=== PATIENT | female | born 1995 | race Caucasian/White ===

== ENCOUNTER 2018-12-25 05:39 | Inpatient (IN) | payer BC ==
[2018-12-24 14:03] LABS: RPR Titer ND
[2018-12-24 14:09] LABS: Urine Appearance CLEAR; Urine Bilirubin NEGATIVE (NEG); Urine Blood NEGATIVE (NEG); Urine Color YELLOW; Urine Glucose NEGATIVE (NEG); Urine Protein NEGATIVE (NEG); Urine Specific Gravity <=1.005 (1.005-1.030); Urine Urobilinogen 0.2 mg/dL (0.2-1.0); Urine pH 6.5 (5.0-7.0)
[2018-12-24 14:37] LABS: Urine Bacteria <20 /HPF (<20); Urine Culture Reflex Order REFLEXED; Urine RBC NONE SEEN /HPF (NONE SEEN)
[2018-12-24 14:42] LABS: Absolute Monocytes 0.7 K/uL (0.1-1.3); Absolute Neutrophil 6.8 K/uL (1.8-8.0); Basophils % 0.2 % (0-1.3); Eosinophils % 0.5 % (0-4.4); Hematocrit 44.5 % (36.0-45.0); Lymphocytes % 20.7 % (15.3-44.8); MPV 11.1 fL (7.6-11.3); Monocytes % 7.5 % (3.3-12.3); RBC Red Blood Cell Count 4.63 M/uL (3.86-4.86)
[2018-12-24 21:05] LABS: Blood Morphology Comment NOT SEEN (NOT SEEN); Platelet Estimate ADEQ; Urine White Blood Cell Casts OK
[2018-12-24 21:06] LABS: Platelets, Giant PRESENT
[2018-12-24 21:24] LABS: RPR (Rapid Plasma Reagin) NON-REACT (NON-REACT)
[~2018-12-25 05:39] MED LIST: CEFAZOLIN/SWI 2gm 2 GM/20 ML SYR IV SCH; FAMOTIDINE 20 MG/2 ML VIAL IV ONE; METOCLOPRAMIDE 10 MG/2mL INJ IV ONE; NA CIT/CITRIC AC 30 ML ORAL UDC PO ONE; Ringers Lactate 1,000 ML IV PRN; Ringers Lactate 1,000 ML IV SCH
[2018-12-25 06:05] VITALS: BMI 24.5
[2018-12-25] MEDS ORDERED: METHYLERGONOVINE 0.2MG/ML AMP IM ONE (07:11)
[2018-12-25] MEDS ORDERED: CARBOPROST TROME 250 MCG/ML IM ONE (07:11)
[2018-12-25] MEDS ORDERED: MORPHINE SULFATE/PF 1 MG/ML (10 ML AMP) ONE (07:18)
[2018-12-25] MEDS ORDERED: OXYTOCIN 10 UNIT/ML ML IV ONE ×2 (07:18→08:42)
[2018-12-25] MEDS ORDERED: NS 0.9% VIAL 10 ML ONE (07:18)
[2018-12-25] MEDS ORDERED: EPHEDRINE SULF 50 MG/ML VIAL ONE (07:18)
[2018-12-25] MEDS ORDERED: Phenylephrine HCl 10 MG/ML 1 ML VIAL ONE (07:36)
[2018-12-25] MEDS ORDERED: Oxycodone HCl/Acetaminophen 1 TAB TAB PO PRN (08:40)
[2018-12-25] MEDS ORDERED: METHYLERGONOVINE 0.2MG/ML AMP IM PRN (08:40)
[2018-12-25] MEDS ORDERED: ONDANSETRON 4 MG (ODT) TAB PO PRN (08:40)
[2018-12-25] MEDS ORDERED: CARBOPROST TROME 250 MCG/ML IM PRN (08:40)
--- NOTE | 2018-12-25 08:44 | P.BOP ---
Preoperative diagnosis: 39 week IUP, prior , pigmented lesion of abdomen Postoperative diagnosis: same, delivery viable female infant Primary procedure: Secondary procedure: excision pigmented lesion Diamond Wheel Edger: Chavo Will Estimated blood loss: 800ml Specimen: placenta, pigmented lesion Anesthesia: Spinal Complications: None Drain(s): Urinary catheter Transferred to: Other (278) Condition: Good
[2018-12-25] MEDS ORDERED: OXYTOCIN/LR 20 UNIT/1,000 ML BAG IV SCH (09:00)
[2018-12-25] MEDS: KETOROLAC 30 MG/ML INJ IV PRN (10:03)
[2018-12-25] MEDS ORDERED: Ringers Lactate 1,000 ML IV ONE ×2 (10:25→11:15)
[2018-12-25] MEDS: METHYLERGONOVINE 0.2 MG TAB PO PRN ×2 (13:55→17:55)
[2018-12-25] MEDS: Oxycodone HCl/Acetaminophen 1 TAB TAB PO PRN (22:38)
--- NOTE | 2018-12-26 03:40 | OP ---
Surgeon: Butch Watson MD Anesthesiologist: Taniya Hernandez CRNA and Dr. Trevor Rivera. Estimated total blood loss was less than 800 cc. The patient received 2 g of Ancef for antibiotic pr ophylaxis. Preoperative Diagnoses: A 39-week , prior section, cephalopelvic disproportion, an d pigmented abdominal lesion. Procedure: Spinal block anesthesia, repeat section, delivery of viable female infant, and e xcision of pigmented abdominal lesion. Postoperative Diagnoses: A 39-week , prior section, cephalopelvic disproportion, a nd pigmented abdominal lesion. Description Of Procedure: After satisfactory level of spinal block anesthesia was obtained, the haleigh ent was prepped and draped in the usual fashion for abdominal surgery. A Pfannenstiel skin incision was made and carried down to the fascia. The fascia was incised with a combination of sharp and blun t dissection. This was from the underlying rectus muscles. These were divided in the midl ine. The peritoneum was incised. Bladder flap was developed. A low-transverse uterine incision was made. A 7-pound and 6-ounce female infant, 9 and 10, was delivered, vertex presentation. Cor d was clamped, cut, and the was placed in a warmer. Cord blood was obtained. The placenta wa s manually removed and the uterus was then exteriorized. The cervix was dilated from above with ring clamp which was passed from the operative field. Uterus was closed in 2 layers utilizing 0 Vicryl s uture in a running nonlocking fashion. Second layer was used to imbricate the first. The vesicouter ine peritoneum was reapproximated with running suture of 3-0 Vicryl. The uterus was returned to the peritoneal cavity, which was closed by approximating the rectus muscles in the midline with simple knott tures of 0 Vicryl. The fascia was closed with running sutures of #1 Vicryl from either margin to the middle. Simple subcutaneous sutures were used as was a subdermal suture of 3-0 Vicryl, and a subcut icular suture of 4-0 Monocryl to close the abdominal incision. Attention was then paid to the pigmen trace lesion in the upper right of midline. An elliptical incision was made excising the pigmented les ion. This was closed with a subcuticular suture of 4-0 Monocryl. Estimated total blood loss was les s than 800 cc. The patient was taken to recovery room in satisfactory condition with sponge and need le counts correct x2. Accountant Systems Surgeon: Shady Chen/ESCOBAR Voice ID: [id number] Report ID: [id number]
[2018-12-26] MEDS: Oxycodone HCl/Acetaminophen 1 TAB TAB PO PRN ×3 (03:43→21:27)
[2018-12-26 06:53] LABS: Absolute Lymphocytes (CBC) 1.8 K/uL (0.7-4.9); Absolute Monocytes 0.7 K/uL (0.1-1.3); Absolute Neutrophil 7.6 K/uL (1.8-8.0); Basophils % 0.5 % (0-1.3); Eosinophils % 0.7 % (0-4.4); Hematocrit 36.1 % (36.0-45.0); MPV 10.6 fL (7.6-11.3); Monocytes % 6.8 % (3.3-12.3); RBC Red Blood Cell Count 3.79 M/uL (3.86-4.86)
[2018-12-26] MEDS: KETOROLAC 30 MG/ML INJ IV PRN (07:00)
--- NOTE | 2018-12-26 07:49 | P.PN ---
Date of Service: 12/26/18 S-No complaints O-Afebrile, vs stable, bandage dry, h/h stable A-Satisfactory po op course P-Ambulate, dc IV, tran, advance diet. Probably home tomorrow.
[2018-12-26] MEDS: IBUPROFEN 400 MG TAB PO PRN (15:21)
[2018-12-27] MEDS: IBUPROFEN 400 MG TAB PO PRN (01:16)
[2018-12-27] MEDS: Oxycodone HCl/Acetaminophen 1 TAB TAB PO PRN ×2 (05:19→09:35)
[2018-12-27 05:29] VITALS: TEMP 97.8
[2018-12-27 07:17] VITALS: BP 110/60
--- NOTE | 2018-12-27 20:26 | DS ---
Date of Discharge: 12/27/2018 Final Hospital Discharge Diagnosis: Term , prior section, cephalopelvic disproport ion. Complications: None. Procedures: Spinal block anesthesia. Repeat section. Delivery of viable female . Hospital Course: The patient is a 23-year-old female, 2, para 1-0-0-1, at 39 weeks gestation, admitted for a repeat section. She delivered a 7-pound 6-ounce female i nfant, 9 and 9. She was dismissed on the second postoperative day, ambulatory on a select diet with routine post activity restrictions. Lab work included an admission hemoglobin and he matocrit of 15.1 and 44.5, dismissal 12.5 and 36.1. She had negative urinalysis, nonreactive RPR. S he is O positive blood type. She was dismissed with prescription for Tylenol No.3 for pain relief, # 15 tablets, to continue taking her vitamins, to be seen back in my office in 1 week with rhonda foley post section activity restrictions. EULOGIO/ESCOBAR Voice ID: [id number] Report ID: [id number]
== END 2018-12-27 09:45 | disposition home or self-care (01) | DRG 788 ==
LOC: 2ND-WC 05:39
PROVIDERS: ADMIT Specialist; ATTEND Specialist
PROC: 0HB7XZZ Excision of Abdomen Skin, External Approach (ICD-10-PCS; 2018-12-25)
PROC: 10D00Z1 Extraction of Products of Conception, Low, Open Approach (ICD-10-PCS; principal; 2018-12-25 07:30)
DX: O33.9 Maternal care for disproportion, unspecified (principal); Z3A.39 39 weeks gestation of pregnancy; Z37.0 Single live birth; O26.893 Other specified pregnancy related conditions, third trimester; L81.9 Disorder of pigmentation, unspecified; D22.5 Melanocytic nevi of trunk
CPT/HCPCS: 36415; 81001; 85025; 86592; 86850; 86900; 86901; 87086; 87088; 88305; 88307; J2210; J2370; J2590; J2765

== ENCOUNTER 2025-05-20 21:10 | Emergency (ER) | payer SELFPAY, OTHER ==
--- OUTSIDE RECORDS SUMMARY | 2025-05-20 21:14 | XMS REPORT | Continuity of Care Document ---
Author Name Unknown Address [address] [facility] [address] [place] [address] [facility] Address [address] [facility] [address] [place] [address] Care Team Providers Care Supervisor Floor Assembly Name Role Phone Pcp, Patient Does Not Have A Primary Care Physic laurie NENITA SALCIDO Attending Clinician Unavailable Doctor Unassigned, [place] Attending Clinician U Nenita Núñez MD Attending Clinician [phone] Zora Campos MD Attending Clinician [phone] Patsy Avila MD Attending Clinician [phone] UNKNOWN, ATTENDING Attending Clinician Unavailab NENITA Simon Admitting Clinician Unavailable Zora Campos MD Admitting Clinician [phone] Nenita Salcido MD Admitting Clinician [phone] Payers Payer Name Policy Type Policy Number Effective Date Expirati on Date Source [employer] MEDICAID [id number] 2021 00:00:00 [facility] [id number] 2015 00:00:00 [place] [id number] 2020 00:00:00 Problems Condition Name Condition Details Condition Category Status Onset Date Resolution Date Last Treatment Date Treating Clinician Comments Source History of herpes genitalis History of herpes genitalis Disease Active 00:00: 00 [facility] COVID-19 virus infection COVID-19 virus infection Disease Active 8- 00:00: 00 [facility] Anxiety Anxiety Disease Active [facility] Depression Depression Disease Active U [facility] Allergies, Adverse Reactions, Alerts Allergy Name Allergy Type Status Severity Reaction(s) Onset Date Inactive Date Treating Clinician Comments Source No Known Allergie s DA Active U 05-16 00:00: 00 [facility] No Known Allergie s DA Active U 05-16 00:00: 00 [facility] NO KNOWN ALLERGIE S Drug Class Active [facility] Social History Social Habit Start Date Stop Date Quantity Comments Source History of tobacco use Cigarette Smoker [facility] Sexual orientation [facility] ASSERTION [facility] Exposure to SARS-CoV-2 (event) 2021-06-24 00:00:00 2021-07-24 13:23:00 Not sure [facility] Alcohol intake 2021-04-23 00:00:00 2021-04-23 00:00:00 Current non-drinker of alcohol (finding) [facility] History of Social function 2019-04-19 00:00:00 2019-04-19 00:00:00 [facility] Tobacco use and exposure 2018-05-19 00:00:00 2018-05-19 00:00:00 Smokeless tobacco non-user [facility] Tobacco Comment 2018-05-19 00:00:00 2018-05-19 00:00:00 4-5 cig a day [facility] Sex Assigned At 1995 00:00:00 1995 00:00:00 [facility] Smoking Status Start Date Stop Date Source Ex-smoker 2018-05-19 00:00:00 2018-05-19 00:00:00 U [facility] Medications Ordered Medication Name Filled Medication Name Start Date Stop Date Current Medication? Ordering Clinician Indication Dosage Frequency Signature (SIG) Comments Components Source valACYclovi r 1 gram tablet 2-14 00:00: 00 Yes 1g Take 1 tablet by mouth 2 (two) times daily. [facility] etonogestre L (NEXPLANON) implant 68 mg 2020-10 21:00: 00 07-24 19:52 :00 No [id number] 68mg [facility] SERTraline (ZOLOFT) 50 mg tablet 06-16 13:01: 52 Yes 50mg Take 50 mg by mouth daily. [facility] ibuprofen 800 mg tablet 06-16 00:00: 00 Yes [id number] 800mg Take 1 tablet by mouth every 8 (eight) hours. [facility] gabapentin 300 mg capsule 06-16 00:00: 00 Yes [id number] 300mg Take 1 capsule by mouth 3 (three) times daily. [facility] docusate calcium 240 mg capsule 06-16 00:00: 00 Yes [id number] 240mg Take 1 capsule by mouth once daily as needed for Constipati on. [facility] ferrous sulfate 325 mg (65 mg iron) tablet 06-16 00:00: 00 Yes [id number] 325mg Take 1 tablet by mouth 2 (two) times daily. [facility] ferrous sulfate 325 mg (65 mg iron) EC tablet 01-27 00:00: 00 Yes 325mg Take 1 tablet by mouth 2 (two) times daily. [facility] PNV 119-iron fum-folic acid (SE--1 9) 29 mg iron- 1 mg Tab 01-27 00:00: 00 Yes 1{tbl} Take 1 tablet by mouth daily. [facility] PNV 119-iron fum-folic acid (SE--1 9) 29 mg iron- 1 mg Tab 01-27 00:00: 00 Yes 1{tbl} Take 1 tablet by mouth daily. [facility] Immunizations Ordered Immunization Name Filled Immunization Name Date Status Comments Source TDAP 2021-04-03 00:00:00 Completed [facility] TDAP 2021-04-03 00:00:00 Completed [facility] TDAP 2021-04-03 00:00:00 Completed [facility] MMR 2013-12-17 00:00:00 Completed [facility] MMR 2013-12-17 00:00:00 Completed [facility] MMR 2013-12-17 00:00:00 Completed [facility] TDAP 2013-09-13 00:00:00 Completed [facility] TDAP 2013-09-13 00:00:00 Completed [facility] TDAP 2013-09-13 00:00:00 Completed [facility] Influenza Virus Vaccine (3+ yrs) 2013-07-05 00:00:00 Completed [facility] Influenza Virus Vaccine (3+ yrs) 2013-07-05 00:00:00 Completed [facility] Influenza Virus Vaccine (3+ yrs) 2013-07-05 00:00:00 Completed [facility] Td 2008-10-10 00:00:00 Completed [facility] Td 2008-10-10 00:00:00 Completed [facility] Td 2008-10-10 00:00:00 Completed [facility] TD, NOS Unknown Completed [facility] Influenza Virus Vaccine (3+ yrs) Unknown Completed [facility] TDAP Unknown Completed [facility] MMR Unknown Completed [facility] TD, NOS Unknown Completed [facility] Influenza Virus Vaccine (3+ yrs) Unknown Completed [facility] TDAP Unknown Completed [facility] MMR Unknown Completed [facility] Vital Signs Vital Name Observation Time Observation Value Comments S ource Systolic blood pressure 2021-07-24 18:47:00 113 mm[Hg] [facility] Diastolic blood pressure 2021-07-24 18:47:00 75 mm[Hg] [facility] Heart rate 2021-07-24 18:47:00 102 /min [facility] Body temperature 2021-07-24 18:47:00 36.78 Shannan [facility] Respiratory rate 2021-07-24 18:47:00 18 /min [facility] Body height 2021-07-24 18:47:00 149.9 cm [facility] Body weight 2021-07-24 18:47:00 53.978 kg [facility] BMI 2021-07-24 18:47:00 24.04 kg/m2 [facility] Procedures Procedure Date / Time Performed Performing Clinicia n Source EXTERNAL PROVIDER RECORDS 2021-11-20 06:01:00 Doctor Unassigned, [place] [facility] POCT TEST 2021-07-24 00:00:00 Nenita Salcido [facility] Encounters Start Date/Time End Date/Time Encounter Type Admission Type Attending [facility] Care Facility Care Department Encounter ID Source 2021-08-10 20:32:[address] [facility] [id number] [facility] 2021-08-10 19:48:[address] [facility] ADRIANA [id number] [facility] 2021-08-10 19:32:[address] [facility] [id number] [facility] 2021-08-08 23:13:[address] [facility] [id number] [facility] 2021-11-20 00:00:00 2021-11-20 00:00:00 Orders Only Doctor Unassigned, [place] [facility] 1.840.114 350.1.13.10 4.2.7.2.686 [id number] [facility] 2021-11-20 00:00:00 2021-11-20 00:00:00 Telephone AdNenita harrington [facility] 1.840.114 350.1.13.10 4.2.7.2.686 [id number] [facility] 2021-11-20 00:00:00 2021-11-20 00:00:00 Patient Secure Msg Doctor Unassigned, [place] [facility] 1.840.114 350.1.13.10 4.2.7.2.686 [id number] [facility] 2021-07-24 13:24:07 2021-07-24 14:46:43 Office Visit AdNenita harrington [facility] [id number] 350.1.13.10 4.2.7.2.686 [id number] [facility] 2021-07-24 13:30:00 2021-07-24 13:30:00 Outpatient R ADUMNENITA [facility] [id number] [facility] 2021-07-17 10:59:55 2021-07-17 11:49:21 Routine Visit Adjuany, Nenita Mills [facility] [id number] 350.1.13.10 4.2.7.2.686 [id number] [facility] 2021-07-17 11:00:00 2021-07-17 11:00:00 Outpatient R ADJUANY, [facility] [id number] [facility] 2021-07-02 09:20:09 2021-07-02 10:00:42 Routine Visit Adjuany, Nenita Mills [facility] [id number] 350.1.13.10 4.2.7.2.686 [id number] [facility] 2021-07-02 09:00:00 2021-07-02 09:00:00 Outpatient R ADUM, [facility] [id number] [facility] 2021-06-25 09:00:00 2021-06-25 09:00:00 Outpatient R ADUM, [facility] [id number] [facility] 2021-06-19 13:00:00 2021-06-19 13:00:00 Outpatient R ADJUANY [facility] [id number] [facility] 2021-06-14 08:50:00 2021-06-16 13:00:00 Hospital Encounter Petra Camposen [facility] 1.2.840.114 350.1.13.10 4.2.7.2.686 [id number] [facility] 2021-06-14 09:24:08 2021-06-14 09:24:08 Anesthesia Event Patsy Avila [facility] 1.2.840.114 350.1.13.10 4.2.7.2.686 [id number] [facility] 2021-06-14 00:00:00 2021-06-14 00:00:00 Surgery Adum, [facility] [id number] 350.1.13.10 4.2.7.2.686 [id number] [facility] 2021-06-12 14:24:23 2021-06-12 15:27:36 Routine Visit Adum, [facility] 1.2.840.114 350.1.13.10 4.2.7.2.686 [id number] [facility] 2021-06-12 14:15:00 2021-06-12 14:15:00 Outpatient R ADJUANY [facility] [id number] [facility] 2021-06-10 05:21:00 2021-06-10 18:25:00 Emergency Adum, [facility] 1.2.840.114 350.1.13.10 4.2.7.2.686 [id number] [facility] 2021-06-04 16:16:36 2021-06-04 17:12:23 Routine Visit Adum, [facility] 1.2.840.114 350.1.13.10 4.2.7.2.686 [id number] [facility] 2021-06-04 16:00:00 2021-06-04 16:00:00 Outpatient R ADUM, [facility] [id number] [facility] 2021-05-25 00:00:00 2021-05-25 00:00:00 Patient Secure Msg Gouldjuany Nenita L[facility] 1.2.840.114 350.1.13.10 4.2.7.2.686 [id number] [facility] 2021-05-23 19:00:00 2021-05-23 19:00:00 Outpatient R UNKNOWN, ATTENDING [facility] [id number] [facility] 2021-05-19 14:15:00 2021-05-19 14:15:00 Outpatient R NENITA SALCIDO [facility] [id number] [facility] 2021-05-07 08:45:00 2021-05-07 08:45:00 Outpatient R NENITA SALCIDO [facility] [id number] [facility] 2021-05-05 08:45:00 2021-05-05 08:45:00 Outpatient R ADNENITA HARRINGTON [facility] [id number] [facility] 2021-05-04 14:45:00 2021-05-04 14:45:00 Outpatient R ADNENITA HARRINGTON [facility] [id number] [facility] 2021-04-22 08:45:00 2021-04-22 08:45:00 Outpatient R NENITA SALCIDO [facility] [id number] [facility] 2021-04-21 08:45:00 2021-04-21 08:45:00 Outpatient R ADNENITA HARRINGTON [facility] [id number] [facility] 2021-04-17 08:45:00 2021-04-17 08:45:00 Outpatient R ADNENITA HARRINGTON [facility] [id number] [facility] 2021-04-15 09:30:00 2021-04-15 09:30:00 Outpatient R ADNENITA HARRINGTON [facility] [id number] [facility] 2021-04-06 09:30:00 2021-04-06 09:30:00 Outpatient [facility] [id number] [facility] 2021-04-03 08:45:00 2021-04-03 08:45:00 Outpatient R NENITA SALCIDO [facility] [id number] [facility] 2021-03-13 10:30:00 2021-03-13 10:30:00 Outpatient R NENITA SALCIDO [facility] [id number] [facility] 2021-02-13 09:00:00 2021-02-13 09:00:00 Outpatient R NENITA SALCIDO [facility] [id number] [facility] 2021-02-10 08:00:00 2021-02-10 08:00:00 Outpatient P [facility] [id number] [facility] 2021-01-16 09:30:00 2021-01-16 09:30:00 Outpatient R NENITA SALCIDO [facility] [id number] [facility] 2020-05-16 13:17:00 2020-05-19 02:33:12 Inpatient [facility] [id number] [facility] Results Test Description Test Time Test Comments Results Result Co mments [id number]* Test Item Value Reference Range Interpretation Comme nts POCT PREG (test code = 1605) Negative On board controls acceptable with C Line (test code = 3574) Yes POCT PREG LOT # (test code = 3575) POCT PREG TEST DATE ( test code = 3576) [facility] [id number] 15:20:00* Test Item Value Reference Range Interpretation Comme nts HCG SERUM QUAL (test code = HCGQL) NEGATIVE CBC W/AUTO [id number] 15:08:00* Test Item Value Reference Range Interpretation Comme nts WHITE BLOOD CELL (test code = WBC) 5.6 K/mm3 6.6-12.1 L RED BLOOD CELL (test code = RBC) 4.42 M/mm3 3.45-5.01 N HEMOGLOBIN (test code = HGB) 11.1 g/dL 10.7-13.9 N HEMATOCRIT (test code = HCT) 37.5 % 32.1-42.1 N MEAN CELL VOLUME (test code = MCV) 85 fL 84.1-94.8 N MEAN CELL HGB (test code = MCH) 25.1 pg 27-35 L MEAN CELL HGB CONCETRATION ( test code = MCHC) 29.6 gm/dL 32.2-34.1 L RED CELL DISTRIBUTION WIDTH (test code = RDW) 14.6 % 12.4-16.5 N PLATELET COUNT (test code = PLT) 353 K/mm3 133-385 N MEAN PLATELET VOLUME (test c ode = MPV) 12.0 fl 9.1-12.7 N MANUAL DIFF REQUIRED (test c ode = MDIFF) YES RBC MORPHOLOGY REQUIRED (libia t code = RBCM) NORMAL NORMAL PLATELET MORPHOLOGY REQUIRED (test code = PLTMR) NORMAL NORMAL WBC [id number] 15:08:00* Test Item Value Reference Range Interpretation Comme nts TOTAL CELLS COUNTED (test co de = TCC) 100 #CELLS SEGMENTED NEUTROPHILS (test code = SEG) 66 % 56.5-79.4 N LYMPHOCYTE (test code = LYMPH) 25 % 20-40 N ATYPICAL LYMPH (test code = ALYMPH) 1 % MONOCYTE (test code = MON) 7 % 0-8 N EOSINOPHIL (test code = EOS) 1 % 0-4 N PLATELET ESTIMATE (test code = PLTEST) ADEQUATE ADEQ PLATELET MORPHOLOGY (test co de = PLTMORPH) NORMAL NORMAL CBC W/AUTO [id number] 14:47:00* Test Item Value Reference Range Interpretation Comme nts WHITE BLOOD CELL (test code = WBC) 5.6 K/mm3 6.6-12.1 L RED BLOOD CELL (test code = RBC) 4.42 M/mm3 3.45-5.01 N HEMOGLOBIN (test code = HGB) 11.1 g/dL 10.7-13.9 N HEMATOCRIT (test code = HCT) 37.5 % 32.1-42.1 N MEAN CELL VOLUME (test code = MCV) 85 fL 84.1-94.8 N MEAN CELL HGB (test code = MCH) 25.1 pg 27-35 L MEAN CELL HGB CONCETRATION ( test code = MCHC) 29.6 gm/dL 32.2-34.1 L RED CELL DISTRIBUTION WIDTH (test code = RDW) 14.6 % 12.4-16.5 N PLATELET COUNT (test code = PLT) 353 K/mm3 133-385 N MEAN PLATELET VOLUME (test c ode = MPV) 12.0 fl 9.1-12.7 N MANUAL DIFF REQUIRED (test c ode = MDIFF) YES RBC MORPHOLOGY REQUIRED (libia t code = RBCM) NORMAL PLATELET MORPHOLOGY REQUIRED (test code = PLTMR) NORMAL WBC [id number] 14:47:00* Test Item Value Reference Range Interpretation Comme nts SEGMENTED NEUTROPHILS (test code = SEG) % 56.5-79 .4 LYMPHOCYTE (test code = LYMPH) % 20-40 CBC W/AUTO [id number] 14:47:00* Test Item Value Reference Range Interpretation Comme nts WHITE BLOOD CELL (test code = WBC) 5.6 K/mm3 6.6-12.1 L RED BLOOD CELL (test code = RBC) 4.42 M/mm3 3.45-5.01 N HEMOGLOBIN (test code = HGB) 11.1 g/dL 10.7-13.9 N HEMATOCRIT (test code = HCT) 37.5 % 32.1-42.1 N MEAN CELL VOLUME (test code = MCV) 85 fL 84.1-94.8 N MEAN CELL HGB (test code = MCH) 25.1 pg 27-35 L MEAN CELL HGB CONCETRATION ( test code = MCHC) 29.6 gm/dL 32.2-34.1 L RED CELL DISTRIBUTION WIDTH (test code = RDW) 14.6 % 12.4-16.5 N PLATELET COUNT (test code = PLT) 353 K/mm3 133-385 N MEAN PLATELET VOLUME (test c ode = MPV) 12.0 fl 9.1-12.7 N MANUAL DIFF REQUIRED (test c ode = MDIFF) YES RBC MORPHOLOGY REQUIRED (libia t code = RBCM) NORMAL PLATELET MORPHOLOGY REQUIRED (test code = PLTMR) NORMAL WBC [id number] 14:47:00* Test Item Value Reference Range Interpretation Comme nts SEGMENTED NEUTROPHILS (test code = SEG) % 56.5-79 .4 LYMPHOCYTE (test code = LYMPH) % 20-40 UA RFLX MICR CULT IF [id number] 14:23:00* Test Item Value Reference Range Interpretation Comme nts UA COLOR (test code = COLU) YELLOW YELLOW UA APPEARANCE (test code = APPU) Slightly-Cloudy CLEAR UA GLUCOSE DIPSTICK (test code = DGLUU) NEGATIVE NEG UA BILIRUBIN DIPSTICK (test code = BILU) NEGATIVE NEG UA KETONE DIPSTICK (test cod e = KETU) NEGATIVE NEG UA SPECIFIC GRAVITY (test code = SGU) 1.019 1.001-1.035 N UA BLOOD DIPSTICK (test code = BRANDON) 3+ NEG A UA PH DIPSTICK (test code = DANIEL) 6.0 5-9 UA PROTEIN DIPSTICK (test code = PROU) 1+ NEG A UA UROBILINIOGEN DIPSTICK (test code = URO) NEGATIVE mg/dL NEG UA NITRITE DIPSTICK (test code = ALISSA) NEG NEG UA LEUKOCYTE ESTERASE DIPSTICK (test code = LEUU) NEG NEG UA WBC (test code = WBCU) 11-15 #/hpf NONE SEEN A UA RBC (test code = RBCU) 3-5 #/hpf NONE SEEN A UA EPITHELIAL CELLS (test code = EPIU) RARE #/HPF RARE-FEW UA BACTERIA (test code = BACU) RARE /HPF RARE-FEW UA MUCUS (test code = MUCU) 1+ NONE SEEN UA AMORPHOUS SEDIMENT (test code = AMORU) RARE Indication for culture: Suprapubic PainUR HCG [id number] 14:17:00* Test Item Value Reference Range Interpretation Comme nts UR HCG QUAL (test code = HCGQLU) NEGATIVE 1. Very dilute u rine specimens, as indicated by a lowspecific gravity, may not contain compliance representative levels ofhCG. 2. False negative results may occur when the levels of hCGare below the sensitivity level of the test. If is still suspected, a first morningurine specimen should be collected 48 hours later andtested. Notes Date/Time Note Provider Source 2020-05-16 15:03:00 [facility] ([facility]) EMERGENCY PROVIDER REPORT REPORT#:[id number] REPORT STATUS: Signed DATE:05/16/20 TIME: 1503 PATIENT: MARCUS RAMIREZ UNIT #: [id number] ROOM/BED: AGE: 25 SEX: F PCP PHYS: No Primary or Family Physician SERVICE AUTHOR: Te Paez MD * ALL edits or amendments must be made on the electronic/computer document * HPI- Female General Confirmed Patient Yes Initial Greet Date/Time 05/16/20 1319 Presentation Chief Complaint Vaginal bleeding Free Text HPI Notes Free Text HPI Notes Patient is a 25-year-old female who recently found out 2 months prior that her has been unfaithful. Patient presents for irregular vaginal bleeding and passing clots concerning for . Patient has taken a urine test 2 to 3 weeks prior for a missed. Which was negative. Now with 1 week history of vaginal rash which is painful and new. Review of Systems ROS Statements All systems rev neg except as marked. Free Text ROS Notes Free Text ROS Notes CONSTITUTIONAL: NO FEVER, CHILLS, CHANGES IN BEHAVIOR HEENT: NO EYE REDNESS/TEARING, EAR PAIN/PULLING, CONGESTION or THROAT PAIN CARDIOVASCULAR: NO CYANOSIS, SWELLING OR SOB PULMONARY: NO COUGH, SOB OR WHEEZING GI: NO TENDERNESS, NAUSEA OR VOMITING, DIARRHEA or CONTIPATION GENITOURINARY: NO DYSURIA, DISCHARGE, BLOOD IN URINE ; + VAGINAL RASH SKIN: NO REDNESS, RASHES OR LESIONS MUSCULOSKELETAL: NO BACK PAIN, JOINT PAIN, MUSCLE PAIN NEUROLOGIC: NO LOC, SEIZURES, NUMBNESS OR TINGLING Past Medical History - Adult Stated Complaint EARLY PREG W/BLEEDING AND CRAMPING Allergies Coded Allergies: No Known Allergies (05/16/20) Home Medications Reported Medications AMPHETAMINE/DEXTROAMPHETAMINE SALTS (ADDERALL) SERTRALINE (ZOLOFT) Smoking status for patients 13 years old or older: Never Smoker Physical Exam Vital Signs Vital Signs First Documented: Result Date Time Pulse Ox 97 05/16 1330 B/P 129/87 05/16 1330 B/P Mean 101 05/16 1330 O2 Delivery Room air 05/16 1330 Temp 37.0 05/16 1330 Pulse 97 05/16 1330 Resp 18 05/16 1330 Last Documented: Result Date Time Pulse Ox 97 05/16 1330 B/P 129/87 05/16 1330 B/P Mean 101 05/16 1330 O2 Delivery Room air 05/16 1330 Temp 37.0 05/16 1330 Pulse 97 05/16 1330 Resp 18 05/16 1330 Review of Vital Signs Reviewed Basic Physical Exam Basic PE GEN: Well appearing/NAD, HEAD: Atraumatic/NC, EYES: PERRL, conj clear, RESP: No resp distress, CV: Reg rate rhythm, ABD: Soft/non-tender, EXT: No gross abnormality, SKIN: No rashes, warm/dry, NEURO: alert oriented, NEURO: gross movement NL, PSYCH: NL thought content Focused PE General/Const General/Const Awake, Alert, No acute distress Resp/Chest Respiratory/Chest Atraumatic, Breath sounds NL, Breath sounds = bilat, No respiratory distress Cardiovascular Cardiovascular Heart rate NL, Regular rhythm, Heart sounds NL Abdomen/GI Abdomen/GI Atraumatic, Soft, Non-tender, BS normoactive, No distention MS Back Back Atraumatic, Inspection NL, Non-tender Skin Skin Atraumatic, Color NL, No rash, Turgor NL Text/Dict Notes + small crusted scattered lesions on the mons pubis x 3, 1 on the labia minora approximately 2-3 mm Genitourinary General Fabric Normalizer present Female Genitourinary Atraumatic, External genitalia NL, Os closed Interpretation Diagnostics Lab Results Interpretation Results Laboratory Tests 05/16/20 1321: [Embedded Image Not Available] Laboratory Tests: 05/16 05/16 1321 1321 Chemistry Serum , Qual NEGATIVE Hematology WBC (6.6 - 12.1 K/mm3) 5.6 L RBC (3.45 - 5.01 M/mm3) 4.42 Hgb (10.7 - 13.9 g/dL) 11.1 Hct (32.1 - 42.1 %) 37.5 MCV (84.1 - 94.8 fL) 85 MCH (27 - 35 pg) 25.1 L MCHC (32.2 - 34.1 gm/dL) 29.6 L RDW (12.4 - 16.5 %) 14.6 Plt Count (133 - 385 K/mm3) 353 MPV (9.1 - 12.7 fl) 12.0 Add Manual Diff YES Total Counted (#CELLS) 100 Seg Neutrophils % (56.5 - 79.4 %) 66 Lymphocytes % (Manual) (20 - 40 %) 25 Atypical Lymphs % (%) 1 Monocytes % (Manual) (0 - 8 %) 7 Eosinophils % (Manual) (0 - 4 %) 1 Platelet Estimate (ADEQ) ADEQUATE Plt Morphology Comment (NORMAL) NORMAL Urines Urine Color (YELLOW) YELLOW Urine Appearance (CLEAR) Slightly-Cloudy Urine pH (5 - 9) 6.0 Ur Specific [place] (1.001 - 1.035) 1.019 Urine Protein (NEG) 1+ H Urine Glucose (UA) (NEG) NEGATIVE Urine Ketones (NEG) NEGATIVE Urine Blood (NEG) 3+ H Urine Nitrite (NEG) NEG Urine Bilirubin (NEG) NEGATIVE Urine Urobilinogen (NEG mg/dL) NEGATIVE Ur Leukocyte Esterase (NEG) NEG Urine RBC (NONE SEEN #/hpf) 3-5 H Urine WBC (NONE SEEN #/hpf) 11-15 H Ur Epithelial Cells (RARE - FEW #/HPF) RARE Amorphous Sediment RARE Urine Bacteria (RARE - FEW /HPF) RARE Urine Mucus (NONE SEEN) 1+ Urine HCG, Qual NEGATIVE Microbiology: Date/Time Procedure - Status Source Growth 05/16 1453 Herpes Simplex Virus Culture - RECD SKIN 05/16 1423 Urine Culture - RECD URINE Re-Evaluation MDM Free Text MDM Notes Free Text MDM Notes H H stable hCG negative. Patient has concern for STDs will empirically treat. Swabbed crusted lesion and will send for culture. Recommend patient follows up with her [facility] [facility] in 7 to 10 days for full STD testing and Pap. Patient verbalizes understanding and and will continue to abstain from intercourse. Strict return precautions for worsening symptoms. ED Course Medication(s) Ordered Medication(s) Ordered: Anti-Infective Agents Sig/Maria Esther Start time Last Medication Dose Route Stop Time Status Admin Metronidazole 2,000 MG X1ED STA 05/16 1502 DC 05/16 PO 05/16 1503 1533 Azithromycin 1,000 MG X1ED STA 05/16 1501 DC 05/16 PO 05/16 1502 1536 Ceftriaxone Sodium 1,000 MG X1ED STA 05/16 1501 DC 08/ IM 08 1502 1535 Cardiovascular Drugs Sig/Maria Esther Start time Last Medication Dose Route Stop Time Status Admin Lidocaine HCl 5 ML .STK-MED ONE 05/16 1527 DC 05/16 IM 1537 Gastrointestinal Drugs Sig/Maria Esther Start time Last Medication Dose Route Stop Time Status Admin Ondansetron Base 4 MG X1ED STA 05/16 1502 DC 05/16 PO 08 1503 1532 Patient Discharge Departure Vital Signs/Condition Vital Signs First Documented: Result Date Time Pulse Ox 97 08/07 1330 B/P 129/87 08/ 1330 B/P Mean 101 08/07 1330 O2 Delivery Room air 05/16 1330 Temp 37.0 08/ 1330 Pulse 97 08/ 1330 Resp 18 05/16 1330 Last Documented: Result Date Time Pulse Ox 97 08/ 1330 B/P 129/87 08/ 1330 B/P Mean 101 08/07 1330 O2 Delivery Room air 08/ 1330 Temp 37.0 08/ 1330 Pulse 97 08/ 1330 Resp 18 05/16 1330 All vital signs available at the time of this entry have been reviewed. 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 I have explained the patient's condition, diagnoses and treatment plan based on the information available to me at this time. I have answered the patient's and/or caregiver's questions and addressed any concerns. The patient and/or caregivers have as good an understanding of the patient's diagnosis, condition and treatment plan as can be expected at this point. The vital signs have been stable. The patient's condition is stable and appropriate for discharge from the emergency department. The patient will pursue further outpatient evaluation with the primary care physician or other designated or consulting physician as outlined in the discharge instructions. The patient and/or caregivers are agreeable to this plan of care and follow-up instructions have been explained in detail. The patient and/or caregivers have received these instructions in written format and have expressed an understanding of the discharge instructions. The patient and/or caregivers are aware that any significant change in condition or worsening of symptoms should prompt an immediate return to this or the closest emergency department or a call to 911. at 1552 [facility] #:[id number] END OF REPORT [facility]
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
[2025-05-20] MEDS ORDERED: KETOROLAC 30 MG/ML INJ ONE (22:44)
[2025-05-20] MEDS ORDERED: ONDANSETRON 4 MG (ODT) TAB ONE (22:45)
[2025-05-20 23:13] VITALS: BP 134/76; O2SAT 100
== END 2025-05-20 23:06 | disposition home or self-care (01) ==
LOC: ER 21:10
DX: R51.9 Headache, unspecified (principal); M54.50 Low back pain, unspecified; M25.522 Pain in left elbow; V49.40XA Driver injured in collision with unspecified motor vehicles in traffic accident, initial encounter
CPT/HCPCS: 70450; 72100; 72125; 96372; 99284; Q0162

== ENCOUNTER 2025-07-25 00:16 | Emergency (ER) | payer OTHER, SELFPAY ==
--- OUTSIDE RECORDS SUMMARY | 2025-07-25 00:20 | XMS REPORT | Continuity of Care Document ---
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 Role Phone Pcp, Patient Does Not Have A Primary Care Physic laurie NENITA SALCIDO Attending Clinician Unavailable Doctor Unassigned, [place] Attending Clinician U Nenita Núñez MD Attending Clinician [phone] Zora Campos MD Attending Clinician [phone] Patsy Avila MD Attending Clinician [phone] UNKNOWN, ATTENDING Attending Clinician Unavailab NENITA Simon Admitting Clinician Unavailable Zora Campos MD Admitting Clinician [phone] Nenita Salcido MD Admitting Clinician [phone] Payers Payer Name Policy Type Policy Number Effective Date Expirati on Date Source [employer] MEDICAID [id number] 2021 00:00:00 [facility] [id number] 2015 00:00:00 [place] [id number] 2020 00:00:00 Problems Condition Name Condition Details Condition Category Status Onset Date Resolution Date Last Treatment Date Treating Clinician Comments Source History of herpes genitalis History of herpes genitalis Disease Active - 00:00: 00 [facility] COVID-19 virus infection COVID-19 virus infection Disease Active 8- 00:00: 00 [facility] Anxiety Anxiety Disease Active [facility] Depression Depression Disease Active [facility] Allergies, Adverse Reactions, Alerts Allergy Name Allergy Type Status Severity Reaction(s) Onset Date Inactive Date Treating Clinician Comments Source No Known Allergie s DA Active U 05-16 00:00: 00 [facility] No Known Allergie s DA Active U 05-16 00:00: 00 [facility] NO KNOWN ALLERGIE S Drug Class Active [facility] Social History Social Habit Start Date Stop Date Quantity Comments Source History of tobacco use Cigarette Smoker [facility] Sexual orientation [facility] ASSERTION [facility] Exposure to SARS-CoV-2 (event) 2021-06-24 00:00:00 2021-07-24 13:23:00 Not sure [facility] Alcohol intake 2021-04-23 00:00:00 2021-04-23 00:00:00 Current non-drinker of alcohol (finding) [facility] History of Social function 2019-04-19 00:00:00 2019-04-19 00:00:00 [facility] Tobacco use and exposure 2018-05-19 00:00:00 2018-05-19 00:00:00 Smokeless tobacco non-user [facility] Tobacco Comment 2018-05-19 00:00:00 2018-05-19 00:00:00 4-5 cig a day [facility] Sex Assigned At 1995 00:00:00 1995 00:00:00 [facility] Smoking Status Start Date Stop Date Source Ex-smoker 2018-05-19 00:00:00 2018-05-19 00:00:00 [facility] Medications Ordered Medication Name Filled Medication Name Start Date Stop Date Current Medication? Ordering Clinician Indication Dosage Frequency Signature (SIG) Comments Components Source valACYclovi r 1 gram tablet 2-14 00:00: 00 Yes 1g Take 1 tablet by mouth 2 (two) times daily. [facility] etonogestre L (NEXPLANON) implant 68 mg 2020-10 0 21:00: 00 07-24 19:52 :00 No [id number] 68mg [facility] SERTraline (ZOLOFT) 50 mg tablet 06-16 13:01: 52 Yes 50mg Take 50 mg by mouth daily. [facility] ibuprofen 800 mg tablet 06-16 00:00: 00 Yes [id number] 800mg Take 1 tablet by mouth every 8 (eight) hours. [facility] gabapentin 300 mg capsule 06-16 00:00: 00 Yes [id number] 300mg Take 1 capsule by mouth 3 (three) times daily. [facility] docusate calcium 240 mg capsule 06-16 00:00: 00 Yes [id number] 240mg Take 1 capsule by mouth once daily as needed for Constipati on. [facility] ferrous sulfate 325 mg (65 mg iron) tablet 06-16 00:00: 00 Yes [id number] 325mg Take 1 tablet by mouth 2 (two) times daily. [facility] ferrous sulfate 325 mg (65 mg iron) EC tablet 01-27 00:00: 00 Yes 325mg Take 1 tablet by mouth 2 (two) times daily. [facility] PNV 119-iron fum-folic acid (SE--1 9) 29 mg iron- 1 mg Tab 01-27 00:00: 00 Yes 1{tbl} Take 1 tablet by mouth daily. [facility] PNV 119-iron fum-folic acid (SE--1 9) 29 mg iron- 1 mg Tab 01-27 00:00: 00 Yes 1{tbl} Take 1 tablet by mouth daily. [facility] Immunizations Ordered Immunization Name Filled Immunization Name Date Status Comments Source TDAP 2021-04-03 00:00:00 Completed [facility] TDAP 2021-04-03 00:00:00 Completed [facility] TDAP 2021-04-03 00:00:00 Completed [facility] MMR 2013-12-17 00:00:00 Completed [facility] MMR 2013-12-17 00:00:00 Completed [facility] MMR 2013-12-17 00:00:00 Completed [facility] TDAP 2013-09-13 00:00:00 Completed [facility] TDAP 2013-09-13 00:00:00 Completed [facility] TDAP 2013-09-13 00:00:00 Completed [facility] Influenza Virus Vaccine (3+ yrs) 2013-07-05 00:00:00 Completed [facility] Influenza Virus Vaccine (3+ yrs) 2013-07-05 00:00:00 Completed [facility] Influenza Virus Vaccine (3+ yrs) 2013-07-05 00:00:00 Completed [facility] Td 2008-10-10 00:00:00 Completed [facility] Td 2008-10-10 00:00:00 Completed [facility] Td 2008-10-10 00:00:00 Completed [facility] TD, NOS Unknown Completed [facility] Influenza Virus Vaccine (3+ yrs) Unknown Completed [facility] TDAP Unknown Completed [facility] MMR Unknown Completed [facility] TD, NOS Unknown Completed [facility] Influenza Virus Vaccine (3+ yrs) Unknown Completed [facility] TDAP Unknown Completed [facility] MMR Unknown Completed [facility] Vital Signs Vital Name Observation Time Observation Value Comments S ource Systolic blood pressure 2021-07-24 18:47:00 113 mm[Hg] [facility] Diastolic blood pressure 2021-07-24 18:47:00 75 mm[Hg] [facility] Heart rate 2021-07-24 18:47:00 102 /min [facility] Body temperature 2021-07-24 18:47:00 36.78 Shannan [facility] Respiratory rate 2021-07-24 18:47:00 18 /min [facility] Body height 2021-07-24 18:47:00 149.9 cm [facility] Body weight 2021-07-24 18:47:00 53.978 kg [facility] BMI 2021-07-24 18:47:00 24.04 kg/m2 [facility] Procedures Procedure Date / Time Performed Performing Clinicia n Source EXTERNAL PROVIDER RECORDS 2021-11-20 06:01:00 Doctor Unassigned, [place] [facility] POCT TEST 2021-07-24 00:00:00 Nenita Salcido [facility] Encounters Start Date/Time End Date/Time Encounter Type Admission Type Attending Clinicians Care Facility Care Department Encounter ID Source 2021-08-10 20:32:34 Emergency [facility] [id number] [facility] 2021-08-10 19:48:22 Outpatient [facility] ADRIANA [id number] [facility] 2021-08-10 19:32:32 Emergency [facility] [id number] [facility] 2021-08-08 23:13:32 Emergency [facility] [id number] [facility] 2021-11-20 00:00:00 2021-11-20 00:00:00 Orders Only Doctor Unassigned, [place] [facility] 1.0.114 350.1.13.10 4.2.7.2.686 [id number] [facility] 2021-11-20 00:00:00 2021-11-20 00:00:00 [facility]phone [facility] 1.840.114 350.1.13.10 4.2.7.2.686 [id number] [facility] 2021-11-20 00:00:00 2021-11-20 00:00:00 Patient Secure Msg Doctor Unassigned, [place] [facility] 1.840.114 350.1.13.10 4.2.7.2.686 [id number] [facility] 2021-07-24 13:24:07 2021-07-24 14:46:43 [facility] 1.2.840.114 350.1.13.10 4.2.7.2.686 [id number] [facility] 2021-07-24 13:30:00 2021-07-24 13:30:00 Outpatient R ADUM, [facility] [id number] [facility] 2021-07-17 10:59:55 2021-07-17 11:49:21 Routine Visit Adjuany, Nenita [facility] 1.2.840.114 350.1.13.10 4.2.7.2.686 [id number] [facility] 2021-07-17 11:00:00 2021-07-17 11:00:00 Outpatient R ADUM, [facility] [id number] [facility] 2021-07-02 09:20:09 2021-07-02 10:00:42 [facility] 1.2.840.114 350.1.13.10 4.2.7.2.686 [id number] [facility] 2021-07-02 09:00:00 2021-07-02 09:00:00 Outpatient R ADUM, [facility] [id number] [facility] 2021-06-25 09:00:00 2021-06-25 09:00:00 Outpatient R ADUM, [facility] [id number] [facility] 2021-06-19 13:00:00 2021-06-19 13:00:00 Outpatient R ADUM [facility] [id number] [facility] 2021-06-14 08:50:00 2021-06-16 13:00:00 Hospital Encounter Zora Campos [facility] 1.2.840.114 350.1.13.10 4.2.7.2.686 [id number] [facility] 2021-06-14 09:24:08 2021-06-14 09:24:08 Anesthesia Event Patsy Avila [facility] 1.2.840.114 350.1.13.10 4.2.7.2.686 [id number] [facility] 2021-06-14 00:00:00 2021-06-14 00:00:00 Surgery Adum, [facility] 1.2.840.114 350.1.13.10 4.2.7.2.686 [id number] [facility] 2021-06-12 14:24:23 2021-06-12 15:27:36 Routine Visit Adum, [facility] 1.2.840.114 350.1.13.10 4.2.7.2.686 [id number] [facility] 2021-06-12 14:15:00 2021-06-12 14:15:00 Outpatient R ADJUANY [facility] [id number] [facility] 2021-06-10 05:21:00 2021-06-10 18:25:00 Emergency Adum, [facility] 1.2.840.114 350.1.13.10 4.2.7.2.686 [id number] [facility] 2021-06-04 16:16:36 2021-06-04 17:12:23 [facility] 1.2.840.114 350.1.13.10 4.2.7.2.686 [id number] [facility] 2021-06-04 16:00:00 2021-06-04 16:00:00 Outpatient R ADUM [facility] [id number] [facility] 2021-05-25 00:00:00 2021-05-25 00:00:00 Patient Secure Msg Gouldjuany Nenita Lina [facility] 1.2.840.114 350.1.13.10 4.2.7.2.686 [id number] [facility] 2021-05-23 19:00:00 2021-05-23 19:00:00 Outpatient R UNKNOWN, JW [facility] [id number] [facility] 2021-05-19 14:15:00 2021-05-19 14:15:00 Outpatient R ADNENITA HARRINGTON [facility] [id number] [facility] 2021-05-07 08:45:00 2021-05-07 08:45:00 Outpatient R NENITA SALCIDO [facility] [id number] [facility] 2021-05-05 08:45:00 2021-05-05 08:45:00 Outpatient R ADNENITA [place] [facility] [id number] [facility] 2021-05-04 14:45:00 2021-05-04 14:45:00 Outpatient R ADNENITA H[place]INGTON [facility] [id number] [facility] 2021-04-22 08:45:00 2021-04-22 08:45:00 Outpatient R NENITA SALCIDO [facility] [id number] [facility] 2021-04-21 08:45:00 2021-04-21 08:45:00 Outpatient R ADNENITA [place] [facility] [id number] [facility] 2021-04-17 08:45:00 2021-04-17 08:45:00 Outpatient R ADNENITA [place] [facility] [id number] [facility] 2021-04-15 09:30:00 2021-04-15 09:30:00 Outpatient R ADNENITA [place] [facility] [id number] [facility] 2021-04-06 09:30:00 2021-04-06 09:30:00 Outpatient R [facility] [id number] [facility] 2021-04-03 08:45:00 2021-04-03 08:45:00 Outpatient R NENITA SALCIDO [facility] [id number] [facility] 2021-03-13 10:30:00 2021-03-13 10:30:00 Outpatient R NENITA SALCIDO [facility] [id number] [facility] 2021-02-13 09:00:00 2021-02-13 09:00:00 Outpatient R NENITA SALCIDO [facility] [id number] [facility] 2021-02-10 08:00:00 2021-02-10 08:00:00 Outpatient P [facility] [id number] [facility] 2021-01-16 09:30:00 2021-01-16 09:30:00 Outpatient R NENITA SALCIDO [facility] [id number] [facility] 2020-05-16 13:17:00 2020-05-19 02:33:12 Inpatient [facility] [id number] Results Test Description Test Time Test Comments Results Result Co mments Source [facility] [id number] 18:44:00* Test Item Value Reference Range Interpretation Comme nts POCT PREG (test code = 1605) Negative On board controls acceptable with C Line (test code = 3574) Yes POCT PREG LOT # (test code = 3575) POCT PREG TEST DATE ( test code = 3576) [facility] SERUM [id number] 15:20:00* Test Item Value Reference Range Interpretation Comme nts HCG SERUM QUAL (test code = HCGQL) NEGATIVE CBC W/AUTO [id number] 15:08:00* Test Item Value Reference Range Interpretation [...] (test code = PLTMR) NORMAL NORMAL WBC [id number] 15:08:00* Test Item Value Reference Range Interpretation [...] de = PLTMORPH) NORMAL NORMAL CBC W/AUTO [id number] 14:47:00* Test Item Value Reference Range Interpretation [...] REQUIRED (test code = PLTMR) NORMAL WBC [id number] 14:47:00* Test Item Value Reference Range Interpretation Comme nts SEGMENTED NEUTROPHILS (test code = SEG) % 56.5-79 .4 LYMPHOCYTE (test code = LYMPH) % 20-40 CBC W/AUTO [id number] 14:47:00* Test Item Value Reference Range Interpretation [...] REQUIRED (test code = PLTMR) NORMAL WBC [id number] 14:47:00* Test Item Value Reference Range Interpretation Comme nts SEGMENTED NEUTROPHILS (test code = SEG) % 56.5-79 .4 LYMPHOCYTE (test code = LYMPH) % 20-40 UA RFLX MICR CULT IF [id number] 14:23:00* Test Item Value Reference Range Interpretation [...] RARE Indication for culture: Suprapubic PainUR HCG [id number] 14:17:00* Test Item Value Reference Range Interpretation Comme nts UR HCG QUAL (test code = HCGQLU) NEGATIVE 1. Very dilute u rine specimens, as indicated by a lowspecific gravity, may not contain care support representative levels ofhCG. 2. False negative results may occur when the levels of hCGare below the sensitivity level of the test. If is still suspected, a first morningurine specimen should be collected 48 hours later andtested. 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 Recommend patient follows up with her MUSEUM GUIDE in 7 to 10 days for full [...] Pulse Ox 97 05/16 1330 B/P 129/87 / 1330 B/P Mean 101 08/07 1330 O2 Delivery Room air 05/16 1330 Temp 37.0 08/ 1330 Pulse 97 08 1330 Resp 18 05/16 1330 Last Documented: Result Date Time Pulse Ox 97 05/16 1330 B/P 129/87 08/ 1330 B/P Mean 101 08/07 1330 O2 Delivery Room air / 1330 Temp 37.0 08/ 1330 Pulse 97 [...] to ED Prescriptions valtrex abstinence FU with MUSEUM GUIDE for blood tests Referrals No Primary or [...] or a call to 911. at 1552 RPT #:[id number] END OF REPORT [facility]
[2025-07-25] MEDS ORDERED: KETOROLAC 30 MG/ML INJ ONE (00:50)
[2025-07-25] MEDS ORDERED: METOCLOPRAMIDE 10 MG/2mL INJ ONE (00:50)
[2025-07-25] MEDS ORDERED: DIPHENHYDRAMINE 50 MG/ML VIAL ONE (00:51)
[2025-07-25] MEDS ORDERED: NA CHLORIDE 0.9% 100 ML ONE (00:51)
[2025-07-25 01:06] LABS: Sqamous Epithelial <5 /HPF (None Seen); Urine Culture Reflex Order NOT NEEDED; Urine Microscopic Reflex YN ORDER UMIC
[2025-07-25 01:11] LABS: White Blood Count 8.80 thou/uL (4.3-10.9)
[2025-07-25 01:17] LABS: Absolute Lymphocytes (CBC) 3.7 K/uL (0.7-4.9); Hematocrit 39.2 % (36.0-45.0); Hemoglobin 12.7 g/dL (12.0-15.0); MCH 23.4 pg (27.0-35.0); MCHC 32.4 g/dL (32.0-36.0); MCV 72.3 fL (80-100); MPV 8.9 fL (7.6-11.3); Nucleated RBC Absolute Count 0.0 (0-0); Nucleated Red Blood Cells % 0.2 % (0-0); RBC Red Blood Cell Count 5.43 M/uL (3.86-4.86)
[2025-07-25 01:20] LABS: ALT/SGPT 49 U/L (13-56); AST/SGOT 38 U/L (15-37); Albumin 3.6 g/dL (3.4-5.0); Albumin/Globulin Ratio 0.8 (1.1-1.8); Alkaline Phosphatase 78 U/L (45-117); Anion Gap 11.7 mEq/L (5.0-15.0); BUN Blood Urea Nitrogen 5 mg/dL (7-18); Globulin 4.6 g/dL (2.3-3.5); Glucose Level 104 mg/dL (74-106); Lipase 46 U/L (13-75); Magnesium 2.1 mg/dL (1.6-2.4); NT PRO-BNP 56 pg/mL (<125); Potassium 3.7 mEq/L (3.5-5.1)
[2025-07-25 01:30] LABS: Bilirubin Indirect, Calculated 0.0 mg/dL (0.2-0.8); Troponin High Sensitivity < 3.0 pg/mL (<58.9)
[2025-07-25 01:32] LABS: PT Prothrombin Time 11.5 SECONDS (10-13.0); Protime INR 1.02
[2025-07-25 01:33] LABS: D-Dimer < 0.215 FEUug/mL (0-0.500)
[2025-07-25 01:57] LABS: Anisocytosis 1+; Blood Morphology Comment NOTED (NOT SEEN); Ovalocytes 1+; Polychromasia SLIGHT; White Blood Cell Scan OK (OK)
[2025-07-25] MEDS ORDERED: NA CHLORIDE 0.9% 1,000 ML ONE (02:09)
--- NOTE | 2025-07-25 06:36 | RAD REPORT ---
EXAMINATION: ONE VIEW CHEST XR CLINICAL INDICATION: Female, 30 years old.,CHEST PAIN TECHNIQUE: Frontal chest projection is submitted. Examination is limited by patient positioning and t echnique. COMPARISON: No prior exam. FINDINGS: The lungs are well inflated and clear. No pneumothorax or sizable effusion. The heart is normal in s ize. Mediastinal contours are unremarkable. IMPRESSION: No acute intrathoracic abnormalities.
--- NOTE | 2025-07-25 06:38 | RAD REPORT ---
EXAMINATION: CT Abdomen Pelvis W Contrast CLINICAL INDICATION: Female, 30 years old. EPIGASTRIC PAIN TECHNIQUE: CT abdomen and pelvis was performed, after the administration of IV contrast, as per [facility] protocol. Axial, sagittal and coronal reconstructions were obtained. One or more of the following dose reduction techniques were used: Automated exposure control, adjustment of the mA and k V according to patient size, and iterative reconstruction. Unless otherwise specified, incidental findings do not require dedicated imaging follow-up. COMPARISON: No prior exam. FINDINGS: LOWER CHEST: The visualized lung bases are clear. LIVER: Normal in size and contour. No focal lesion. BILIARY SYSTEM: No suspicious abnormalities. SPLEEN: Normal size. No focal lesion. PANCREAS: No mass, ductal dilation, or tres-pancreatic fluid. ADRENALS: Normal; no mass. KIDNEYS: Normal size and contour. No hydronephrosis. URINARY BLADDER: Unremarkable. GASTROINTESTINAL TRACT: Breathing motion artifact the upper abdomen limits evaluation. No evidence of free air, significant intra-abdominal free fluid, bowel obstruction or abscess. APPENDIX: Normal appendix. LYMPH NODES: No lymphadenopathy. MUSCULOSKELETAL: No acute or suspicious osseous abnormality. ADDITIONAL FINDINGS: Diastases recti. Dominant right ovarian cyst or follicle. IMPRESSION: No acute or concerning abnormalities seen in the abdomen or pelvis.
--- NOTE | 2025-07-25 06:42 | ER ---
Nurse's Notes [facility] Name: Bria Krishnamurthy Age: 30 yrs Sex: Female : 1995 Arrival Date: 07/25/2025 Time: 00:16 Bed 19 Private MD: Diagnosis: Chest pain, unspecified Presentation: 07/25 00:29 Chief complaint: EMS states: Pt presents to the ED with complaints of chest pains. Pt kd3 reports that her chest pain started a few hours ago and that her called for an ambulance. Pt points to her epigastric region and states the pain travels up her chest in the center. pt report pain of 5/10 and reports a history of "larger than normal valves" but has never had any surgeries and denies additional cardiac history. Pt endorsee's consuming wine. Pt vss. Coronavirus screen: Vaccine status: Patient reports being unvaccinated. Ebola Screen: No symptoms or risks identified at this time. Initial Sepsis Screen: Does the patient meet any 2 criteria? No. Patient's initial sepsis screen is negative. Does the patient have a suspected source of infection? No. Patient's initial sepsis screen is negative. Risk Assessment: Do you want to hurt yourself or someone else? Patient reports no desire to harm self or others. Onset of symptoms was July 25, 2025. 00:29 Method Of Arrival: EMS: [facility] kd3 00:29 Acuity: GEOVANNA 3 kd3 Triage Assessment: 00:33 General: Appears in no apparent distress. Behavior is anxious. Pain: Complains of pain kd3 in xiphoid area, mid-sternal area and epigastric area. Neuro: Level of Consciousness is awake, alert, obeys commands, Oriented to person, place, time, situation. Cardiovascular: Capillary refill < 3 seconds Patient's skin is warm and dry. Respiratory: Airway is patent Respiratory effort is even, unlabored, Respiratory pattern is regular, symmetrical. Historical: - Allergies: 00:33 No Known Allergies; kd3 - Immunization history:: Adult Immunizations up to date. - Infectious Disease History:: Denies. - Social history:: Smoking status: Patient/guardian denies using tobacco, the patient reports quitting approximately 1 years ago. Screenin:00 [facility] ED Fall Risk Assessment (Adult) History of falling in the last 3 months, km10 including since admission No falls in past 3 months (0 pts) Confusion or Disorientation No (0 pts) Intoxicated or Sedated No (0 pts) Impaired Gait No (0 pts) Mobility Assist Device Used No (0 pt) Altered Elimination No (0 pt) Score/Fall Risk Level 0 - 2 = Low Risk Oriented to surroundings, Maintained a safe environment, Educated pt \\T\\ family on fall prevention, incl call for assistance when getting out of bed, Assessed \\T\\ reinforced patient's understanding of fall precautions. 02:00 Abuse screen: Denies threats or abuse. Denies injuries from another. Nutritional km10 screening: No deficits noted. Tuberculosis screening: No symptoms or risk factors identified. Assessment: 00:34 General: see triage . kd3 01:30 Reassessment: Patient appears in no apparent distress at this time. No changes from 10 previously documented assessment. Patient and/or family updated on plan of care and expected duration. Pain level reassessed. Patient is alert, oriented x 3, equal unlabored respirations, skin warm/dry/pink. 02:30 Reassessment: Patient appears in no apparent distress at this time. No changes from km10 previously documented assessment. Patient and/or family updated on plan of care and expected duration. Pain level reassessed. 03:30 Reassessment: Patient appears in no apparent distress at this time. No changes from km10 previously documented assessment. Patient and/or family updated on plan of care and expected duration. Pain level reassessed. Patient is alert, oriented x 3, equal unlabored respirations, skin warm/dry/pink. 06:46 Reassessment: Patient appears in no apparent distress at this time. Patient and/or 10 family updated on plan of care and expected duration. Pain level reassessed. Patient is alert, oriented x 3, equal unlabored respirations, skin warm/dry/pink. Vital Signs: 00:29 BP 131 / 78; Pulse 102; Resp 18; Temp 97.8; Pulse Ox 99% on R/A; Weight 69.4 kg; Height kd3 4 ft. 11 in. ; Pain 5/10; 02:01 BP 108 / 45; Pulse 102; Resp 18; Pulse Ox 99% on R/A; km10 03:49 BP 122 / 73; Pulse 107; Resp 16; Pulse Ox 98% on R/A; km10 06:04 BP 109 / 62; Pulse 99; Resp 16; Pulse Ox 98% on R/A; km10 06:46 BP 112 / 75; Pulse 93; Resp 16; Pulse Ox 98% on R/A; km10 00:29 Body Mass Index 30.90 (69.40 kg, 149.86 cm) kd3 00:29 Pain Scale: Adult kd3 Sherron Coma Score: 06:46 Eye Response: spontaneous(4). Motor Response: obeys commands(6). Verbal Response: km10 oriented(5). Total: 15. ED Course: 00:27 Patient arrived in ED. vk 00:29 Marybel Arriola, AME is Primary Nurse. km10 00:29 Yonatan Siddiqi PA-C is PHCP. cp 00:29 Santosh Isabel DO is Attending Physician. cp 00:33 Triage completed. kd3 00:33 Arm band placed on right wrist. kd3 00:35 No provider procedures requiring assistance completed. Inserted saline lock: 20 gauge kd3 in left antecubital area, using aseptic technique. Blood collected. Flushed with 10 mL NS. 00:45 Patient has correct armband on for positive identification. Bed in low position. Call km10 light in reach. Side rails up X2. 00:45 Provided Education on: plan of care. Client placed on continuous cardiac and pulse km10 oximetry monitoring. NIBP monitoring applied. rail director on. Door closed. Noise minimized. Warm blanket given. Pillow given. 00:58 XRAY Chest (1 view) In Process Unspecified. EDMS 00:59 Lipase Sent. kd3 00:59 CK Sent. kd3 00:59 Basic Metabolic Panel Sent. kd3 00:59 CBC with Diff Sent. kd3 00:59 D-Dimer Sent. kd3 00:59 LFT's Sent. kd3 00:59 Magnesium Sent. kd3 00:59 NT PRO-BNP Sent. kd3 00:59 PT-INR Sent. kd3 00:59 Troponin HS Sent. kd3 00:59 UA Rfx Maxwell Cult if indicated Sent. kd3 00:59 Test, Serum Sent. kd3 02:29 CT Abd/Pelvis - IV Contrast Only In Process Unspecified. EDMS 06:50 IV discontinued, intact, bleeding controlled, No redness/swelling at site. Pressure km10 dressing applied. Administered Medications: 00:59 Drug: metoCLOPramide IVP 10 mg IVP once; over 1 to 2 minutes Route: IVP; Site: left kd3 antecubital; 02:00 Follow up: Response: No adverse reaction 10 01:00 Drug: diphenhydrAMINE IVP 25 mg IVP once Route: IVP; Site: left antecubital; kd3 02:00 Follow up: Response: No adverse reaction 10 01:00 Drug: Ketorolac IVP 15 mg IVP once Route: IVP; Site: left antecubital; kd3 02:00 Follow up: Response: No adverse reaction 10 02:15 Drug: NS 0.9% IV 1000 ml IV at 1000 ml once; to be given as a bolus over 60 minutes kd3 Route: IV; Rate: 1000 ml; Site: left antecubital; 05:58 Follow up: Response: No adverse reaction; IV Status: Completed infusion km10 Outcome: 06:41 Discharge ordered by tt7 06:50 Discharged to home ambulatory, with family, km10 06:50 Condition: stable 06:50 Discharge instructions given to patient, Instructed on discharge instructions, follow up and referral plans. Demonstrated understanding of instructions, follow-up care, 06:50 Patient left the ED. km10 Signatures: Dispatcher [employer] EDMS Yonatan Siddiqi PA-C PA-C cp Doucette, Kyli RN AME kd3 Nenita Abreu Kirsten, RN RN km10 Santosh Isabel DO DO tt7 Corrections: (The following items were deleted from the chart) 01:00 00:35 Inserted saline lock: 20 gauge in right antecubital area, using aseptic kd3 technique. Blood collected. Flushed with 10 mL NS kd3
--- NOTE | 2025-07-25 06:42 | EDPHYS ---
Physician Documentation [facility] Name: Bria Krishnamurthy Age: 30 yrs Sex: Female : 1995 Arrival Date: 07/25/2025 Time: 00:16 Bed 19 Private MD: ED Physician Santosh Isabel HPI: 07/25 00:40 This 30 yrs old Female presents to ER via EMS with complaints of Chest Pain. cp 00:40 The patient or guardian reports chest pain that is located primarily in the substernal cp area, epigastric area. 00:40 The pain radiates to back, upper chest. Associated signs and symptoms: Pertinent cp positives: nausea, vomiting. The chest pain is described as sharp. Duration: The patient or guardian reports a single episode, that is still ongoing, but improving. Pain started this evening several hours ago after fishing outside with . Historical: - Allergies: 00:33 No Known Allergies; kd3 - Immunization history:: Adult Immunizations up to date. - Infectious Disease History:: Denies. - Social history:: Smoking status: Patient/guardian denies using tobacco, the patient reports quitting approximately 1 years ago. ROS: 00:45 Cardiovascular: Positive for chest pain, Negative for edema, palpitations, cp 00:45 Respiratory: Negative for cough, shortness of breath, wheezing, cp 00:45 Eyes: Negative for injury, pain, redness, and discharge, cp 00:45 Constitutional: Negative for body aches, chills, fever, poor PO intake, 00:45 Abdomen/GI: Positive for abdominal pain, nausea and vomiting, of the epigastric area, Negative for diarrhea, constipation, 00:45 Back: Positive for radiated pain, 00:45 Neuro: Negative for altered mental status, dizziness, headache, syncope, weakness, 00:45 All other systems are negative, Exam: 00:48 ECG was reviewed by the Attending Physician. cp 00:50 Constitutional: The patient appears in no acute distress, alert, awake, cp non-diaphoretic, non-toxic, well developed, well nourished, uncomfortable, 00:50 Head/Face: Normocephalic, atraumatic. cp 00:50 Eyes: Periorbital structures: appear normal, Conjunctiva: normal, no exudate, no injection, Sclera: no appreciated abnormality, Lids and lashes: appear normal, bilaterally, 00:50 ENT: External ear(s): are unremarkable, Nose: is normal, Mouth: Lips: moist, Oral mucosa: moist, Posterior pharynx: Airway: no evidence of obstruction, patent, 00:50 Chest/axilla: Inspection: normal, 00:50 Cardiovascular: Rate: tachycardic, Rhythm: regular, Edema: is not appreciated, JVD: is not appreciated, 00:50 Respiratory: the patient does not display signs of respiratory distress, Respirations: normal, no use of accessory muscles, no retractions, labored breathing, is not present, Breath sounds: are clear throughout, no decreased breath sounds, no stridor, no wheezing, 00:50 Abdomen/GI: Inspection: abdomen appears normal, Bowel sounds: active, all quadrants, Palpation: soft, in all quadrants, mild abdominal tenderness, in the epigastric area, rebound tenderness, is not appreciated, involuntary guarding, is not appreciated, 00:50 Back: pain, is absent, ROM is normal, 00:50 Neuro: Orientation: to person, place \T\ time. Mentation: is normal, Motor: moves all fours, strength is normal, Vital Signs: 00:29 BP 131 / 78; Pulse 102; Resp 18; Temp 97.8; Pulse Ox 99% on R/A; Weight 69.4 kg; Height kd3 4 ft. 11 in. ; Pain 5/10; 02:01 BP 108 / 45; Pulse 102; Resp 18; Pulse Ox 99% on R/A; km10 03:49 BP 122 / 73; Pulse 107; Resp 16; Pulse Ox 98% on R/A; km10 06:04 BP 109 / 62; Pulse 99; Resp 16; Pulse Ox 98% on R/A; km10 06:46 BP 112 / 75; Pulse 93; Resp 16; Pulse Ox 98% on R/A; km10 00:29 Body Mass Index 30.90 (69.40 kg, 149.86 cm) kd3 00:29 Pain Scale: Adult kd3 Sherron Coma Score: 06:46 Eye Response: spontaneous(4). Motor Response: obeys commands(6). Verbal Response: km10 oriented(5). Total: 15. MDM: 00:30 Medical Screening Exam initiated cp 01:00 Differential diagnosis: acute myocardial infarction, cholecystitis, Cholelithiasis cp costochondritis, esophagitis, gastritis, hiatal hernia, pancreatitis, pneumonia, pneumothorax, pulmonary embolus. 03:00 Transition of care: After a detail discussion of the patient's case, care is cp transferred to [facility]. 03:00 Awaiting: CT scan results. 04:18 Data reviewed: vital signs, nurses notes, lab test result(s), radiologic studies. ED tt7 course: I took over care of this patient from the JENNIFER, this is a 30-year-old female who presented with chest pain/epigastric pain, standard cardiac workup was ordered, overall EKG was nonischemic, laboratory studies reassuring, patient had CT imaging of the abdomen/pelvis ordered by the JENNIFER, I have personally reviewed these images and do not see any acute findings to explain the patient's symptoms, we are currently having issues with receiving radiology reports, the patient is currently sleeping comfortably in bed, will continue to await official radiology report but should the patient decide to want to leave the emergency department I would feel comfortable with discharge with strict return precautions pending radiology callback. 06:47 ED course: X-ray and CT imaging are reassuring, no acute abnormalities, after tt7 completion of the patient's emergency department evaluation, I do not suspect a life-threatening or disabling process. Patient is medically stable and not in need of emergent medical intervention. I had a detailed discussion with the patient regarding the historical points, exam findings, emergency department evaluation, diagnostic results, and the discharge diagnosis. I instructed the patient on outpatient management of their condition. I discussed the need for outpatient follow-up with a primary care physician. I informed the patient on return precautions, including the need to return to the ED if symptoms do not improve, worsen, or if there are any questions or concerns that arise at home. The patient was discharged in stable condition. 07/25 00:30 Order name: Test, Serum; Complete Time: cp 07/25 00:30 Order name: UA Rfx Maxwell Cult if indicated; Complete Time: : cp 07/25 01:32 Interpretation: Normal except: [facility] Turbid. 07/25 00:30 Order name: Basic Metabolic Panel; Complete Time: : cp 07/25 01:33 Interpretation: Normal except: CL 108; BUN 5. cp 07/25 00:30 Order name: CBC with Diff; Complete Time: 02:07 cp 07/25 01:33 Interpretation: Normal except: RBC 5.43; MCV 72.3; MCH 23.4; RDW 21.0. cp 07/25 00:30 Order name: D-Dimer; Complete Time: 01:35 cp 07/25 00:30 Order name: LFT's; Complete Time: 01:32 cp 07/25 00:30 Order name: Magnesium; Complete Time: 01:32 cp 07/25 00:30 Order name: NT PRO-BNP; Complete Time: 01:32 cp 07/25 00:30 Order name: PT-INR; Complete Time: 01:35 cp 07/25 00:30 Order name: Troponin HS; Complete Time: 01:32 cp 07/25 01:33 Interpretation: Reviewed. cp 07/25 00:30 Order name: Lipase; Complete Time: 01:32 cp 07/25 00:30 Order name: CK; Complete Time: 01:32 cp 07/25 01:20 Order name: CBC Smear Scan; Complete Time: 02:07 EDMS 07/25 00:30 Order name: XRAY Chest (1 view); Complete Time: 06:41 cp 07/25 01:38 Order name: CT Abd/Pelvis - IV Contrast Only; Complete Time: 06:41 cp 07/25 00:30 Order name: EKG; Complete Time: 00:31 cp 07/25 00:30 Order name: Cardiac monitoring; Complete Time: 00:59 cp 07/25 00:30 Order name: EKG - Nurse/Tech; Complete Time: 00:59 cp 07/25 00:30 Order name: IV Saline Lock; Complete Time: 00:59 cp 07/25 00:30 Order name: Labs collected and sent; Complete Time: 00:59 cp 07/25 00:30 Order name: O2 Per Protocol; Complete Time: 00:59 cp 07/25 00:30 Order name: O2 Sat Monitoring; Complete Time: 00:59 cp EC:48 Rate is 93 beats/min. Rhythm is regular. DE interval is normal. QRS interval is normal. cp QT interval is normal. T waves are Inverted in leads III, aVR. Interpreted by me. Reviewed by me. Administered Medications: 00:59 Drug: metoCLOPramide IVP 10 mg IVP once; over 1 to 2 minutes Route: IVP; Site: left kd3 antecubital; 02:00 Follow up: Response: No adverse reaction 10 01:00 Drug: diphenhydrAMINE IVP 25 mg IVP once Route: IVP; Site: left antecubital; kd3 02:00 Follow up: Response: No adverse reaction 10 01:00 Drug: Ketorolac IVP 15 mg IVP once Route: IVP; Site: left antecubital; kd3 02:00 Follow up: Response: No adverse reaction 10 02:15 Drug: NS 0.9% IV 1000 ml IV at 1000 ml once; to be given as a bolus over 60 minutes kd3 Route: IV; Rate: 1000 ml; Site: left antecubital; 05:58 Follow up: Response: No adverse reaction; IV Status: Completed infusion Disposition: 06:48 Co-signature as Attending Physician, Santosh Isabel DO I reviewed the patient's care tt7 provided by Advanced Practice Provider \T\ agree w/ the diagnosis \T\ care plan. I personally saw the pt \T\ performed a substantive portion of the visit, incldng all aspects of the (History/Exam/Medical Decision Making). Disposition Summary: 07/25/25 06:41 Discharge Ordered Notes: Location: Home tt7 Problem: new tt7 Symptoms: are resolved tt7 Condition: Stable tt7 Diagnosis - Chest pain, unspecified tt7 Followup: tt7 - With: Emergency Department - When: As needed - Reason: Followup: tt7 - With: Private Physician - When: 1 - 2 days - Reason: Recheck today's complaints, Re-evaluation by your physician Discharge Instructions: - Discharge Summary Sheet tt7 - Nonspecific Chest Pain, Adult, [id number] tt7 Forms: - Medication Reconciliation Form tt7 - Antibiotic Education tt7 - Prescription Opioid Use tt7 - Patient Portal Instructions tt7 - Leadership Thank You Letter tt7 Signatures: Dispatcher [employer] EDWI Yonatan Siddiqi PA-C PA-C cp Doucette, Kyli, RN RN kd3 Santosh Isabel DO DO tt7 Marybel Arriola RN km10 Corrections: (The following items were deleted from the chart) 00:31 00:31 TEST, SERUM+SC.LAB.BRZ ordered. EDWI EDMS 00: 00:31 UA Rfx Maxwell Cult if indicated+U.LAB.BRZ ordered. EDMS EDMS 00: 00:31 BASIC METABOLIC PANEL+C.LAB.BRZ ordered. EDMS EDMS 00: 00:31 CBC+H.LAB.BRZ ordered. EDMS EDMS 00: 00:31 D-DIMER+COAG.LAB.BRZ ordered. EDMS EDMS 00: 00:31 HEPATIC FUNCTION+C.LAB.BRZ ordered. EDMS EDMS 00: 00:31 MAGNESIUM+C.LAB.BRZ ordered. EDMS EDMS 00: 00:31 PROBNP+C.LAB.BRZ ordered. EDMS EDMS 00: 00:31 PROTIME (+INR)+COAG.LAB.BRZ ordered. EDMS EDMS 00: 00:31 Troponin High Sensitivity+C.LAB.BRZ ordered. EDMS EDMS 00: 00:31 LIPASE+C.LAB.BRZ ordered. EDMS EDMS 00: 00:31 CREATINE PHOSPHOKINASE+C.LAB.BRZ ordered. EDMS EDMS 04:21 04:18 ED course: I took over care of this patient from the JENNIFER, this is a 30-year-old tt7 female who presented with chest pain/epigastric pain, standard cardiac workup was ordered, overall EKG was nonischemic, laboratory studies reassuring,. tt7 07/26 02:24 07/25 00:40 The pain radiates to cp cp
[2025-07-25 07:38] VITALS: TEMP 97.8
[2025-07-25 07:41] VITALS: O2SAT 98
[2025-07-25 07:44] VITALS: BP 112/75
== END 2025-07-25 06:50 | disposition home or self-care (01) ==
LOC: ER 00:16
DX: R07.9 Chest pain, unspecified (principal)
CPT/HCPCS: 36415; 71045; 74177; 80048; 80076; 81001; 82550; 83690; 83735; 83880; 84484; 84703; 85025; 85379; 85610; 93005; 96361; 96374; 96375; 99285; J1200; J1885; J2765; J7030; Q9967